=== PATIENT | female | born 1960 | race Caucasian/White ===

== ENCOUNTER → 2017-04-01 | Outpatient (CLI) | payer OTHER ==
--- NOTE | 2017-04-26 00:28 | ECWPNPC ---
PATIENT NAME: UNIQUE ALBA : 1960 GENDER: FEMALE VISIT DATE: 04/01/2017 DISCHARGE DATE: 04/01/17 1649 VISIT LOCKED DATE TIME: PHYSICIAN: ELLA GOLDMAN RESOURCE: ELLA GOLDMAN REASON FOR APPOINTMENT 1. LOW BACK HISTORY OF PRESENT ILLNESS NEW PATIENT CONSULT: WHEN DID YOUR PAIN FIRST START? . BRIEFLY DESCRIBE HOW YOUR PAIN STARTED? . HOW DOES YOUR PAIN CHANGE WITH TIME? . DOES YOUR PAIN AWAKEN YOU FROM SLEEP? . HOW MANY HOURS OF SLEEP DO YOU NORMALLY GET? . ANY DIAGNOSTIC TESTING? . FACILITY WHERE TESTS WERE DONE? ____. PAIN TREATMENT TREATMENT YES CANCER HAVE YOU EVER HAD ANY TYPE OF CANCER?NO NO. PAIN SCREENING: PATIENT HAS A COMPLAINT OF ACUTE OR CHRONIC PAIN :YES FALL RISK SCREENING: SCREENING :NO FALLS IN THE PAST YEAR CASTRO INVENTORY: QUESTIONNAIRE ASSESSEDTBD SCORE VALUE CALCULATED TBD TODAY'S VISIT: NOTES: REFERRED TODAY FOR FURTHER EVAL OF SCIATIC PAIN AND NECK PAIN WITH RADICULOPATHY BY BEL ANDREWS PA-C. IS ALSO BEING FOLLOWED BY NEUROLOGY. IS S/P CERVICAL LAMINECTOMY IN 2008 IN [place]. NECK PAIN IMPROVED AFTER SURGERY. WORST PAIN NOW IS IN LOW BACK. ONSET HAS BEEEN FOR OVER 5 YEARS. . RATES PAIN TODAY 10/10, DESCRIBES PAIN CONSTANT, BURNING, STABBING. PAIN IS CENTER LOW BACK AND RADIATES DOWN BOTH LEGS LEFT > RIGHT. IS FALLING FREQUENTLY.STATES HER LEGS GIVE OUT.REPORTS NUMBNESS AND TINGLING BOTH LOWER EXTREMITIES RIGHT> LEFT. DENIES LOSS OF BOWEL OR BLADDER CONTROL. HAS HAD RECENT PHYSICAL THERAPY FOR BACK - THIS PRODUCED MARKED INCREASE IN PAIN - NOTES SHE HAS PANIC ISSUES AND IT IS VERY HARD FOR HER TO GO OUT OF THE HOUSE. HAS HAD NO OTHER RECENT REATMENT FOR HER BACK.. CURRENT MEDICATIONS TAKING CANE - MISCELLANEOUS DIRECTED _ DAILY ICD10 R26.2 TAKING DICLOFENAC POTASSIUM 50 MG TABLET 1 TABLET ORALLY TWICE A DAY TAKING WELLBUTRIN XL 150 MG TABLET EXTENDED RELEASE 24 HOUR 1 TABLET IN THE MORNING ORALLY ONCE A DAY TAKING ALBUTEROL SULFATE HFA 108 (90 BASE) MCG/ACT AEROSOL SOLUTION 2 PUFFS NEEDED INHALATION EVERY 4 HRS TAKING ADVAIR DISKUS 250-50 MCG/DOSE AEROSOL POWDER BREATH ACTIVATED 1 PUFF INHALATION TWICE A DAY TAKING ONE TOUCH ULTRA SYSTEM KIT _ METER DIRECTED SUBCUTANEOUSLY DIRECTED ICD10 E11.65 TAKING ONE TOUCH ULTRA TEST STRIPS _ STRIPS DIRECTED SUBCUTANEOUSLY FOUR TIMES DAILY ICD10 E11. TAKING ONETOUCH LANCETS _ MISCELLANEOUS DIRECTED SUBCUTANEOUSLY FOUR TIMES DAILY NEEDED E11.65 TAKING PEN NEEDLES 3/16" 31G X 5 MM MISCELLANEOUS DIRECTED SUBCUTANEOUSLY FOUR TIMES DAILY ICD10 E11.65 TAKING FREESTYLE TEST STRIPS _ STRIP DIRECTED IN VITRO FOUR TIMES DAILY ICD10 E11.9 TAKING FREESTYLE FREEDOM _ GLUCOMETER DIRECTED _ FOUR TIMES DAILY E11.9 TAKING AMITRIPTYLINE HCL 50 MG TABLET 1 TABLET ORALLY ONCE A DAY TAKING WRIST BRACE/LEFT MEDIUM - MISCELLANEOUS DIRECTED _ DAILY TAKING WRIST BRACE/RIGHT MEDIUM - MISCELLANEOUS DIRECTED _ DAILY ICD10 G56.03 TAKING LEVEMIR FLEXPEN 100 UNIT/ML SOLUTION PEN-INJECTOR 40 UNITS SUBCUTANEOUS Q PM TAKING NOVOLOG FLEXPEN 100 UNIT/ML SOLUTION PEN-INJECTOR 38 UNITS WITH EACH MEAL SUBCUTANEOUS DIRECTED TAKING VENTOLIN HFA 108 (90 BASE) MCG/ACT AEROSOL SOLUTION 2 PUFFS NEEDED TAKING FLONASE ALLERGY RELIEF 50 MCG/ACT SUSPENSION 1 SPRAY IN EACH NOSTRIL NASALLY BID TAKING ZYRTEC ALLERGY 10 MG TABLET 1 TABLET ORALLY ONCE A DAY TAKING AMLODIPINE 10 MG TABLET ORAL ORALLY ONCE DAILY TAKING GABAPENTIN 600 MG TABLET 1 CAPSULE DAILY ON DAY 1, TWICE A DAY ON DAY 2, THEN 3 TIMES A DAY ORALLY DIRECTED TAKING HYDROXYZINE HCL 25 MG TABLET 1-2 TABLET NEEDED QHS ORALLY DIRECTED TAKING LIPITOR 10 MG TABLET 1 TABLET ORALLY ONCE A DAY TAKING METOPROLOL TARTRATE 25 MG TABLET 1 TABLET WITH FOOD ORALLY TWICE A DAY TAKING CYMBALTA 60 MG CAPSULE DELAYED RELEASE PARTICLES 1 CAPSULE ORALLY ONCE A DAY TAKING TOPIRAMATE 100 MG TABLET 1 TABLET ORALLY BEFORE BEDTIME TAKING SINGULAIR 10 MG TABLET 1 TABLET IN THE EVENING ORALLY ONCE A DAY TAKING MOBIC 15 MG TABLET 1 TABLET ORALLY ONCE A DAY MEDICATION LIST REVIEWED AND RECONCILED WITH THE PATIENT PAST MEDICAL HISTORY DIABETES HYPERTENSION ASTHMA FIBROMYALGIA DEPRESSION INSOMNIA BILATERAL CARPAL SLOAN ALLERGIES PENICILLIN (FOR ALLERGIES USE ONLY): HIVES: ALLERGY DOXYCYCLINE: DIZZINESS: SIDE EFFECTS SURGICAL HISTORY HYSTERECTOMY 2004 CERVICAL 2014 KNEE SURGERY 2015 FAMILY HISTORY FATHER: , DIAGNOSED WITH HYPERTENSION, HEART DISEASE, CANCER MOTHER: ALIVE, DIAGNOSED WITH HYPERTENSION, HEART DISEASE, STROKE SIBLINGS: DIAGNOSED WITH STROKE 1 BROTHER(S) , 7 SISTER(S) . 1 SON(S) , 1 DAUGHTER(S) - HEALTHY. FATHER- PROSTATE CANCER. SOCIAL HISTORY GENERAL: TOBACCO USE ARE YOU A:FORMER SMOKER HOW LONG HAS IT BEEN SINCE YOU LAST SMOKED?> 10 YEARS LUNG CANCER SCREENING SMOKING STATUS:FORMER SMOKER IS THE PATIENT BETWEEN THE AGE OF 57 AND 79?NO BMI CARE GOAL FOLLOW-UP ABOVE NORMAL BMI FOLLOW-UPDIETARY MANAGEMENT EDUCATION, GUIDANCE, AND COUNSELING ALCOHOL SCREENING POINTS0 INTERPRETATIONNEGATIVE RECREATIONAL DRUG USE DRUG USE?NO CAFFEINE CAFFEINE USE?NO OCCUPATION: UNEMPLOYED. [employer] [id number] QUAKER LEARNING BARRIERS / SPECIAL NEEDS CHANGE FROM LAST VISIT?NO PAIN CLINIC PFS, CLERGY, PUBLIC HEALTH REFERRALS PFS REFERRAL NEEDED?NO CLERGY REFERRAL NEEDED?NO PUBLIC HEALTH REFERRAL NEEDED?NO WAS THE PROVIDER NOTIFIED OF ANY PERTINENT INFO?NO PATIENT: ____. ADVANCED DIRECTIVES HEALTH CARE PROXY?NO WOULD YOU LIKE MORE INFORMATION?YES WEARS GLASSES, USES CANE TO WALK. HOSPITALIZATION/MAJOR DIAGNOSTIC PROCEDURE SURGICAL PNEUMONIA 12 YEARS AGO REVIEW OF SYSTEMS CONSTITUTIONAL: ANY CHANGE IN YOUR MEDICAL CONDITION? NO . CHILLS NO . FEVER NO . INFECTION: DO YOU HAVE NEW INFECTIONS? NO . DO YOU HAVE HISTORY OF MRSA? NO . MUSCULOSKELETAL: ANY NEW PATTERNS OF PAIN OR NUMBNESS? NO . SYTEMIC LUPUS NO . GASTROENTEROLOGY: ANY NEW CHANGE IN BOWEL CONTROL? NO . BARRETTS ESOPHAGUS NO . CIRRHOSIS NO . HEPATITIS NO . LIVER FAILURE NO . ACID REFLUX YES . UNEXPLAINED WEIGHT LOSS NO . GENITOURINARY: ANY NEW CHANGE IN BLADDER CONTROL? NO . IS THERE A CHANCE YOU COULD BE ? NO . HEMATOLOGY/LYMPH: DO YOU TAKE ANY BLOOD THINNERS? (FOR EXAMPLE- COUMADIN, PLAVIX, AGGRENOX, PLATEL, PRADAXA, OR XARELTO) NO . WHEN WAS YOUR LAST DOSE? DATE: TIME: . LOW PLATELET COUNT NO . SICKLE CELL DISEASE NO . VON WILLIEBRANDS NO . FACTOR V LEIDEN NO . THALLASEMIA NO . ANEMIA NO . EASY BRUISING NO . NEUROLOGY: HAVE YOU FALLEN IN THE PAST 6 MONTHS? NO . HEAD INJURY NO . DEMENTIA NO . CEREBRAL PALSY NO . MULTIPLE SCLEROSIS NO . BURNING PAIN IN FEET NEUROPATHY IN BOTH LOWER EXTREMITIES. . DIZZINESS NO . HEADACHE MIGRAINES BEING TREATED BY NEUROPATHY . STROKES NO . VERTIGO NO . CARDIOLOGY: DO YOU HAVE A PACEMAKER OR DEFIBRILLATOR? NO . ANGINA YES . HEART ATTACK NO . HEART SURGERY NO . CONGESTIVE HEART FAILURE/FLUID OVERLOAD NO . CHEST PAIN NO . HIGH BLOOD PRESSURE YES . IRREGULAR HEART BEAT YES . RESPIRATORY: SLEEP APNEA THINKS MAY HAVE SLEEP APNEA - SNORE LOUDLY, FAMILY REPORTS SHE SNORE LOUDLY . HAVE YOU BEEN SICK IN THE PAST WEEK? NO . FEVER NO . FLU LIKE SYMPTOMS? NO . CPAP NO . BYPAP NO . ASTHMA YES . EMPHYSEMA NO . CHRONIC LUNG DISEASES NO . SHORTNESS OF BREATH ON EXERTION YES . DO YOU USE ANY TYPE OF TOBACCO (SMOKE, SMOKELESS, CHEW)? NO - QUIT 18 YEARS AGO. . COUGH NO . SNORING YES . INTEGUMENTARY: DO YOU HAVE ANY RASHES OR OPEN SORES? NO . ALLERGIC/IMMUNO: ARE YOU ALLERGIC TO SHELLFISH OR IV DYE? NO . ANY NEW ALLERGIES? NO . PSYCHIATRIC: DO YOU HAVE THOUGHTS OF HURTING YOURSELF OR SOMEONE ELSE? NO . ARE YOU ABUSED, NEGLECTED, OR IN AN UNSAFE ENVIRONMENT? NO . ENDOCRINOLOGY: ARE YOU DIABETIC? YES . THYROID DISORDER NO . OTHER: DO YOU NEED ANY PRESCRIPTIONS? NO . IF YES, PLEASE LIST: ____ . ANY NEW PROBLEMS WITH YOUR MEDICATIONS? NO . WHEN DID YOU LAST EAT? ____ . WHEN DID YOU LAST DRINK? ____ . WHAT DID YOU LAST DRINK? ____ . NAME OF PERSON DRIVING YOU HOME? ____ . DO YOU HAVE ANY OTHER QUESTIONS OR CONCERNS NO . REVIEWED BY: PROVIDER: ELLA LAW . VITAL SIGNS WT 202.2 LBS, HT 62", BMI 36.98 INDEX, BP 165/100 MM HG, HR 117 /MIN, RR 16 /MIN, TEMP 97.8 F, OXYGEN SAT % 98%, NA INITIALS TL 1534, REVIEWED BY: KATE BP, RN N.L. AWARE- TL. EXAMINATION GENERAL EXAMINATION: PSYCHHAVING SOME DIFFICULTY FILLING OUT REQUIRED PAPERWORK, WITH UNDERSTANDING OF DIRECTIONS. , FAIREYE CONTACT, , ANXIOUS, ALERT , ORIENTED X 3 . HEENT:NORMOCEPHALIC, NO LYMPHADENOPATHY, NO THYROMEGLY. LUNGS:CLEAR TO AUSCULTATION BILATERALLY, NO WHEEZES, RALES OR RHONCHI. HEART:HEART RATE REGULAR, NORMAL S1S2, NO MURMURS, CLICK OR RUBS. MUSCULOSKELETAL:MUSCLE STRENGTH TESTING 5/5 BILATERAL UPPER AND LOWER EXTREMITIES. POINT TENDERNESS OVER LUMBAR SPINOUS PROCESSES AND BILATERALLY AT THE SACRAL ILIAC JOINTS. CAN FLEX TO 45 DEGREES, EXTEND TO 10 DEGREES, AND ROTATE SLOWLY SIDE TO SIDE. SLR POSITIVE AT 30 DEGREES ON RIGHT. PAIN ELICITED WITH HIP COMPRESSIONS R>L AND WITH PATRICKS TESTING. POSTURE UPRIGHT, GAIT SLOW, NONANTALGIC. NEUROLOGIC EXAM:CN'S II-XII GROSSLY INTACT. NO SENSORY DEFICEIT ELICITED. DTR'S 2+ BUE, 3+ BILATERAL LOWER EXTREMITIES. PLANTAR RESPONSE IS FLXOR. NO CLONUS. ASSESSMENTS LUMBAGO WITH SCIATICA, LEFT SIDE - M54.42 (PRIMARY) LUMBAGO WITH SCIATICA, RIGHT SIDE - M54.41 BILATERAL SACROILIITIS - M46.1 TREATMENT LUMBAGO WITH SCIATICA, LEFT SIDE START BACLOFEN TABLET, 10 MG, 1 TABLET WITH FOOD OR MILK, ORALLY, THREE TIMES A DAY, 30 DAY(S), 90, REFILLS 1 START VALIUM TABLET, 10 MG, 1 TABLET NEEDED, ORALLY, TAKE 1 TAB 1 HOUR PRIOR TO TEST, AND 1 TAB ON ARRIVAL MDD=2, 1 DOSE(S), 2, REFILLS 0 [facility] MRI SPINE, [facility].S[facility] WITHOUT [id number],SUSAN M 04/01/2017 4:27:48 PM > LUMBAR RADICULOPATHY CLINICAL NOTES: HAS HAD PREVIOUS PHYSICA THERAPY WITHOUT RELIEF, HAS BEEN ON NSAIDS SUPERVISED BY HER PCP WITHOUT EFFECT AND HAS FAILED PREVIOUS MUSCLE RELAXERS. WE ARE REQUESTING MRI OF LUMBAR SPINE SO WE CAN MOVE FORWARD WITH FURTHER TREATMENT. PREVENTIVE MEDICINE GAVE INFO ON BACLOFEN. PROCEDURE CODES FA211 ESTABILISHED PATIENT [facility] CHARGE DISPOSITION & COMMUNICATION FOLLOW UP 1 MONTH (REASON: NEED AUTH FOR MRI LUMBAR SPINE) ELECTRONICALLY SIGNED BY ZECHARIAH ARAGON ON 04/25/2017 AT 08:43 AM EDT DISCLAIMER : THIS IS A VISIT SUMMARY EXTRACTED FROM THE [employer] CHART. IT IS NOT A COPY OF THE [employer] PROGRESS NOTE. [email or web address]
== END | disposition home or self-care (01) ==
LOC: M PAIN 15:20
PROVIDERS: ATTEND Nurse Practitioner Family
DX: G89.29 Other chronic pain (principal); M54.42 Lumbago with sciatica, left side; M54.41 Lumbago with sciatica, right side; M46.1 Sacroiliitis, not elsewhere classified; E11.9 Type 2 diabetes mellitus without complications; I10 Essential (primary) hypertension; J45.909 Unspecified asthma, uncomplicated; M79.7 Fibromyalgia; F33.9 Major depressive disorder, recurrent, unspecified; G47.00 Insomnia, unspecified; G56.03 Carpal tunnel syndrome, bilateral upper limbs; Z82.49 Family history of ischemic heart disease and other diseases of the circulatory system; Z79.899 Other long term (current) drug therapy; Z79.51 Long term (current) use of inhaled steroids; Z79.4 Long term (current) use of insulin; Z88.0 Allergy status to penicillin; Z88.1 Allergy status to other antibiotic agents; Z87.891 Personal history of nicotine dependence

== ENCOUNTER → 2017-04-18 | Outpatient (REF) | payer OTHER ==
[2017-04-18 17:59] LABS: MEAN CORPUSCULAR HEMOGLOBIN 29.8 pg (27.0-33.0); MEAN CORPUSCULAR VOLUME 90.4 fl (80.0-96.0); RED CELL DISTRIBUTION WIDTH 13.4 % (11.5-14.5); WHITE BLOOD COUNT 9.6 K/mm3 (4.0-10.0)
[2017-04-18 18:30] LABS: ALBUMIN 3.2 GM/DL (3.2-5.2); ALBUMIN/GLOBULIN RATIO 0.89 (1.00-1.93); ALKALINE PHOSPHATASE 196 U/L (45-117); ALT/SGPT 22 U/L (12-78); ANION GAP 6 MEQ/L (8-16); AST/SGOT 14 U/L (15-37); BILIRUBIN,TOTAL 0.7 MG/DL (0.2-1.0); BLOOD UREA NITROGEN 12 MG/DL (7-18); CARBON DIOXIDE LEVEL 30 MEQ/L (21-32); CHLORIDE LEVEL 106 MEQ/L (98-107); CHOLESTEROL LEVEL 168 MG/DL (<200); CREATININE FOR GFR 0.77 MG/DL (0.55-1.02); GLOMERULAR FILTRATION RATE > 60.0 (>51); GLUCOSE, FASTING 288 MG/DL (70-105); POTASSIUM SERUM 4.1 MEQ/L (3.5-5.1); SODIUM LEVEL 142 MEQ/L (136-145); TOTAL PROTEIN 6.8 GM/DL (6.4-8.2); TRIGLYCERIDES LEVEL 230 MG/DL (<150)
== END ==
LOC: M SFHCLERA 13:43
PROVIDERS: ATTEND Physician Assistant
DX: I10 Essential (primary) hypertension (principal); E78.2 Mixed hyperlipidemia; E11.65 Type 2 diabetes mellitus with hyperglycemia

== ENCOUNTER 2017-06-27 09:33 | Outpatient (RCR) | payer OTHER | END 2017-06-30 | disposition home or self-care (01) | LOC: M PT 09:33 | PROVIDERS: ATTEND Physician Assistant | DX: Z51.89 Encounter for other specified aftercare (principal); R42 Dizziness and giddiness ==

== ENCOUNTER → 2017-07-21 | Outpatient (CLI) | payer OTHER ==
--- NOTE | 2017-07-25 23:53 | ECWPNPC ---
PATIENT NAME: UNIQUE ALBA : 1960 GENDER: FEMALE VISIT DATE: 07/21/2017 DISCHARGE DATE: 07/21/17 1441 VISIT LOCKED DATE TIME: PHYSICIAN: ELLA GOLDMAN RESOURCE: ELLA GOLDMAN REASON FOR APPOINTMENT 1. REVIEW MRI HISTORY OF PRESENT ILLNESS HISTORY OF PRESENT ILLNESS: PAIN THE PATIENT DESCRIBES THE PAIN... FALL RISK SCREENING: SCREENING :NO FALLS IN THE PAST YEAR TODAY'S VISIT: NOTES: RATES PAIN TODAY 10/10. DESCRIBES PAIN CONSTANT, ACHING, SHARP AND STABBING. PAIN IS CENTERED ACROSS THE LOW BACK WITH RADIATION TO BOTH LEGS TO LEVEL OF FOOT. REPORTS LEFT LEG IS HOT AND COLLASPS. HAS HAD MULTIPLE FALLS. . CURRENT MEDICATIONS TAKING CANE - MISCELLANEOUS DIRECTED _ DAILY ICD10 R26.2 TAKING DICLOFENAC POTASSIUM 50 MG TABLET 1 TABLET ORALLY TWICE A DAY TAKING WELLBUTRIN XL 150 MG TABLET EXTENDED RELEASE 24 HOUR 1 TABLET IN THE MORNING ORALLY ONCE A DAY TAKING ALBUTEROL SULFATE HFA 108 (90 BASE) MCG/ACT AEROSOL SOLUTION 2 PUFFS NEEDED INHALATION EVERY 4 HRS TAKING ONE TOUCH ULTRA SYSTEM KIT _ METER DIRECTED SUBCUTANEOUSLY DIRECTED ICD10 E11.65 TAKING ONE TOUCH ULTRA TEST STRIPS _ STRIPS DIRECTED SUBCUTANEOUSLY FOUR TIMES DAILY ICD10 E11.65 TAKING ONETOUCH LANCETS _ MISCELLANEOUS DIRECTED SUBCUTANEOUSLY FOUR TIMES DAILY NEEDED E11.65 TAKING PEN NEEDLES 316" 31G X 5 MM MISCELLANEOUS DIRECTED SUBCUTANEOUSLY FOUR TIMES DAILY ICD10 E11.65 TAKING AMITRIPTYLINE HCL 50 MG TABLET 1 TABLET ORALLY ONCE A DAY TAKING WRIST BRACE/LEFT MEDIUM - MISCELLANEOUS DIRECTED _ DAILY TAKING WRIST BRACE/RIGHT MEDIUM - MISCELLANEOUS DIRECTED _ DAILY ICD10 G56.03 TAKING HYDROXYZINE HCL 25 MG TABLET 1-2 TABLET NEEDED QHS ORALLY DIRECTED TAKING TOPIRAMATE 100 MG TABLET 1 TABLET ORALLY BEFORE BEDTIME TAKING SINGULAIR 10 MG TABLET 1 TABLET IN THE EVENING ORALLY ONCE A DAY TAKING BACLOFEN 10 MG TABLET 1 TABLET WITH FOOD OR MILK ORALLY THREE TIMES A DAY TAKING VALIUM 10 MG TABLET 1 TABLET NEEDED ORALLY TAKE 1 TAB 1 HOUR PRIOR TO TEST, AND 1 TAB ON ARRIVAL MDD=2 TAKING TOPIRAMATE 100 MG TABLET TAKE ONE TABLET BY MOUTH AT BEDTIME ORAL TAKING KETOCONAZOLE 2 % CREAM 1 APPLICATION TO CORNERS OF MOUTH EXTERNALLY ONCE A DAY TAKING LIPITOR 10 MG TABLET 1 TABLET ORALLY ONCE A DAY TAKING ADVAIR DISKUS 250-50 MCG/DOSE AEROSOL POWDER BREATH ACTIVATED 1 PUFF INHALATION TWICE A DAY TAKING AMLODIPINE 10 MG TABLET ORAL ORALLY ONCE DAILY TAKING ZYRTEC ALLERGY 10 MG TABLET 1 TABLET ORALLY ONCE A DAY TAKING MECLIZINE HCL 25 MG TABLET CHEWABLE 1 TABLET NEEDED ORALLY Q 6 HOURS PRN TAKING INVOKANA 100 MG TABLET 1 TABLET ORALLY ONCE A DAY TAKING NOVOLOG FLEXPEN 100 UNIT/ML SOLUTION PEN-INJECTOR 38 UNITS WITH EACH MEAL SUBCUTANEOUS DIRECTED TAKING FREESTYLE FREEDOM _ GLUCOMETER DIRECTED _ FOUR TIMES DAILY E11.9 TAKING FREESTYLE LITE TEST - STRIP DIRECTED IN VITRO FOUR TIMES DAILY NEEDED ICD10 E11.65 TAKING LEVEMIR FLEXPEN 100 UNIT/ML SOLUTION PEN-INJECTOR 40 UNITS SUBCUTANEOUS Q PM TAKING METOPROLOL TARTRATE 25 MG TABLET 1 TABLET WITH FOOD ORALLY TWICE A DAY TAKING MOBIC 15 MG TABLET 1 TABLET ORALLY ONCE A DAY TAKING VENTOLIN HFA 108 (90 BASE) MCG/ACT AEROSOL SOLUTION INHALE TWO PUFFS BY MOUTH EVERY 4 HOURS NEEDED TAKING GABAPENTIN 600 MG TABLET ORALLY THREE TIMES A DAY TAKING FLONASE ALLERGY RELIEF 50 MCG/ACT SUSPENSION 1 SPRAY IN EACH NOSTRIL NASALLY BID TAKING CYMBALTA 60 MG CAPSULE DELAYED RELEASE PARTICLES 1 CAPSULE ORALLY ONCE A DAY TAKING PANTOPRAZOLE SODIUM 40 MG TABLET DELAYED RELEASE 1 TABLET ORALLY ONCE A DAY DISCONTINUED DULOXETINE HCL 60 MG CAPSULE DELAYED RELEASE PARTICLES 1 CAPSULE ORALLY ONCE A DAY MEDICATION LIST REVIEWED AND RECONCILED WITH THE PATIENT PAST MEDICAL HISTORY DIABETES HYPERTENSION ASTHMA FIBROMYALGIA DEPRESSION INSOMNIA BILATERAL CARPAL SLOAN ALLERGIES PENICILLIN (FOR ALLERGIES USE ONLY): HIVES: ALLERGY DOXYCYCLINE: DIZZINESS: SIDE EFFECTS REVIEW OF SYSTEMS REVIEWED BY: PROVIDER: ELLA LWA . CONSTITUTIONAL: ANY CHANGE IN YOUR MEDICAL CONDITION? NO . CHILLS NO . FEVER NO . INFECTION: DO YOU HAVE NEW INFECTIONS? NO . DO YOU HAVE HISTORY OF MRSA? NO . MUSCULOSKELETAL: ANY NEW PATTERNS OF PAIN OR NUMBNESS? YES, LEFT LEG IS HOT AND LEFT BUTTOCK GETS HOT AND NUMB AND THEN SHE FALLS ALOT . GASTROENTEROLOGY: ANY NEW CHANGE IN BOWEL CONTROL? NO . GENITOURINARY: ANY NEW CHANGE IN BLADDER CONTROL? NO . IS THERE A CHANCE YOU COULD BE ? NO . HEMATOLOGY/LYMPH: DO YOU TAKE ANY BLOOD THINNERS? (FOR EXAMPLE- COUMADIN, PLAVIX, AGGRENOX, PLATEL, PRADAXA, OR XARELTO) NO . WHEN WAS YOUR LAST DOSE? DATE: TIME: . NEUROLOGY: HAVE YOU FALLEN IN THE PAST 6 MONTHS? YES, JUST LAST WEEK / FALLS ALOT FROM LEFT LEG BRUISE TO LEFT LEG BELOW KNEE AND KNEE IS SWOLLEN TO . ANY NEW EXTREMITY NUMBNESS OR WEAKNESS? NO . CARDIOLOGY: DO YOU HAVE A PACEMAKER OR DEFIBRILLATOR? NO . RESPIRATORY: HAVE YOU BEEN SICK IN THE PAST WEEK? NO . FEVER NO . FLU LIKE SYMPTOMS? NO . COUGH NO . INTEGUMENTARY: DO YOU HAVE ANY RASHES OR OPEN SORES? NO . ALLERGIC/IMMUNO: ARE YOU ALLERGIC TO SHELLFISH OR IV DYE? NO . ANY NEW ALLERGIES? NO . PSYCHIATRIC: DO YOU HAVE THOUGHTS OF HURTING YOURSELF OR SOMEONE ELSE? NO . ARE YOU ABUSED, NEGLECTED, OR IN AN UNSAFE ENVIRONMENT? NO . ENDOCRINOLOGY: ARE YOU DIABETIC? YES . OTHER: DO YOU NEED ANY PRESCRIPTIONS? NO . IF YES, PLEASE LIST: ____ . ANY NEW PROBLEMS WITH YOUR MEDICATIONS? NO . WHEN DID YOU LAST EAT? ____ . WHEN DID YOU LAST DRINK? ____ . WHAT DID YOU LAST DRINK? ____ . NAME OF PERSON DRIVING YOU HOME? ____ . DO YOU HAVE ANY OTHER QUESTIONS OR CONCERNS NO . VITAL SIGNS WT 208 LBS, HT 62", BMI 38.04 INDEX, BP 159/91 MM HG, HR 93 /MIN, RR 16 /MIN, TEMP 98.1 F, OXYGEN SAT % 97. EXAMINATION GENERAL EXAMINATION: PSYCH ANXIOUS, ALERT , ORIENTED X 3 . HEENT:NORMOCEPHALIC, NO LYMPHADENOPATHY, NO THYROMEGLY. LUNGS:CLEAR TO AUSCULTATION BILATERALLY, NO WHEEZES, RALES OR RHONCHI. HEART:HEART RATE REGULAR, NORMAL S1S2, NO MURMURS, CLICK OR RUBS. MUSCULOSKELETAL:MUSCLE STRENGTH TESTING 5/5 BILATERAL UPPER AND LOWER EXTREMITIES. POINT TENDERNESS OVER LUMBAR SPINOUS PROCESSES AND BILATERALLY AT THE SACRAL ILIAC JOINTS. . PAIN ELICITED WITH HIP COMPRESSIONS R>L AND WITH PATRICKS TESTING. POSTURE UPRIGHT, GAIT SLOW, NONANTALGIC. NEUROLOGIC EXAM:CN'S II-XII GROSSLY INTACT. NO SENSORY DEFICEIT ELICITED. DTR'S 2+ BUE, 3+ BILATERAL LOWER EXTREMITIES.. DIAGNOSTIC TESTS REVIEWEDREVIEWED MRI OF LUMBAR SPINE COMPLETED ON 06/14/17. DEMONSTRATES MILD DEVELOPMENTAL STENOSISMOF THE SPINAL CANAL AT L3-5. THERE IS MILD DISC BULGE WITH A SUPERIMPOSED DISC PROTRUSION EXTENDING INTO THE LATERAL RECESS. THE MYELOGRAPHIC IMAGING SUGGESTS EXTRINSIC NERVE ROOT COMPRESSION ON THE LEFT. THERE IS MILD DEGENERATIVE DISC DISEASE AT L4-5 AND MODERATE DEGENERATIVE DISC DISEASE WITH A SMALL TO MODERATE SIZED CENTRAL DISC EXTRUSION. THERE IS OSTEOARTHRITIC FACET JOINT CHANGES AT L4-5 AND L5-S1. ASSESSMENTS LUMBAR DISC DISPLACEMENT WITHOUT MYELOPATHY - M51.26 (PRIMARY) LUMBAR RADICULOPATHY - M54.16 TREATMENT LUMBAR DISC DISPLACEMENT WITHOUT MYELOPATHY START PREDNISONE TABLET, 20 MG, 1 TABLET, ORALLY, TAKE 1 TAB TWICE A DAYX 3 DAYS AND THEN 1/2 TAB TWICE A DAY X 3 DAYS, 30 DAY(S), 9, REFILLS 0 NOTES: INTRALAMINAR LUMBAR EPIDURAL HOLD INSULIN AND DIABETES MEDS MORNING OF INJECTION,WHAT IS LUMBAR EPIDURAL INJECTION? MATERIAL WAS PRINTED,LUMBAR EPIDURAL INJECTION: YOUR PROCEDURE MATERIAL WAS PRINTED. CLINICAL NOTES: OPTION FOR EPIDURAL INJECTIONS WERE DISCUSSED WITH THE PATIENT. FDA CONCERNS AND WARNING WERE REVIEWED INCLUDING THE RISK OF BLEEDING, RISK OF INFECTION, RISK OF INCREASED PAIN OR NEURALGIA, AND RISK OF PARALYSIS. PATIENT'S QUESTIONS WERE ANSWERED AND HE/SHE WISHES TO MOVE FORWARD WITH EPIDURAL INJECTION. REFERRAL TO:NEUROSURGERY REASON:LUMBAR DISC DISPLACEMENT L5, LUMBAR RADICULOPATHY REFERRAL TO:[facility] REASON:L5-S1 LUMBAR DISC DISPLACENT WITH RADICULOPATHY PREVENTIVE MEDICINE GAVE INFO ON LESI AND PRE PROCEDURE CARE / PT STATES UNDERSTANDING. PROCEDURE CODES FA211 ESTABILISHED PATIENT [facility] CHARGE DISPOSITION & COMMUNICATION FOLLOW UP AFTER INJECTION (REASON: CHECK AUTH INTRALAMINAR LUMBAR EPIDURAL ) ELECTRONICALLY SIGNED BY ZECHARIAH ARAGON ON 07/25/2017 AT 07:23 PM EDT DISCLAIMER : THIS IS A VISIT SUMMARY EXTRACTED FROM THE [employer] CHART. IT IS NOT A COPY OF THE [employer] PROGRESS NOTE. ZAMZAM
== END | disposition home or self-care (01) ==
LOC: M PAIN 13:15
PROVIDERS: ATTEND Nurse Practitioner Family
DX: G89.29 Other chronic pain (principal); M51.26 Other intervertebral disc displacement, lumbar region; M54.16 Radiculopathy, lumbar region; E11.9 Type 2 diabetes mellitus without complications; I10 Essential (primary) hypertension; J45.909 Unspecified asthma, uncomplicated; M79.7 Fibromyalgia; F33.9 Major depressive disorder, recurrent, unspecified; G47.00 Insomnia, unspecified; Z79.899 Other long term (current) drug therapy; Z79.51 Long term (current) use of inhaled steroids; Z79.4 Long term (current) use of insulin; Z88.0 Allergy status to penicillin; Z88.1 Allergy status to other antibiotic agents

== ENCOUNTER → 2017-08-18 | Outpatient (CLI) | payer OTHER ==
[~2017-08-18] MED LIST: ISOVUE-M 300 61% 15ML VIAL (Q9967) As Ordered ONE; LIDOCAINE 1% SDV INJ 30 ML VIAL As Ordered ONE; diazePAM 5 MG TAB As Ordered ONE; methylPREDNISolone SUSP 40 MG/ML (DEPO-medrol) VIAL (J1030) As Ordered ONE; oxyCODONE 5MG TAB As Ordered ONE
--- NOTE | 2017-08-18 11:13 | REP ---
Partial lumbar spine series: Three views . History: Injection procedure for pain. 42 seconds of fluoroscopy time is reported. Findings: A sequence of three fluoroscopically obtained last image hold procedural spot radiographs of the lumbar spine document needle position and contrast injection associated with injection procedure. Signed by Sunday Llanos MD 08/18/2017 11:05 A
--- NOTE | 2017-08-18 23:45 | ECWPNPC ---
PATIENT NAME: UNIQUE ALBA : 1960 GENDER: FEMALE VISIT DATE: 08/18/2017 DISCHARGE DATE: 08/18/17 0000 VISIT LOCKED DATE TIME: PHYSICIAN: EDIL TAYLOR RESOURCE: EDIL TAYLOR REASON FOR APPOINTMENT 1. INTRALAMINAR LE HISTORY OF PRESENT ILLNESS HISTORY OF PRESENT ILLNESS: PAIN THE PATIENT DESCRIBES THE PAIN... FALL RISK SCREENING: SCREENING :NO FALLS IN THE PAST YEAR CURRENT MEDICATIONS TAKING CANE - MISCELLANEOUS DIRECTED _ DAILY ICD10 R26.2 TAKING DICLOFENAC POTASSIUM 50 MG TABLET 1 TABLET ORALLY TWICE A DAY, NOTES: 08/17/17 08 TAKING WELLBUTRIN XL 150 MG TABLET EXTENDED RELEASE 24 HOUR 1 TABLET IN THE MORNING ORALLY ONCE A DAY, NOTES: 08/17/17 08 TAKING ALBUTEROL SULFATE HFA 108 (90 BASE) MCG/ACT AEROSOL SOLUTION 2 PUFFS NEEDED INHALATION EVERY 4 HRS, NOTES: 08/17/17799 TAKING ONE TOUCH ULTRA SYSTEM KIT _ METER DIRECTED SUBCUTANEOUSLY DIRECTED ICD10 E11.65 TAKING ONE TOUCH ULTRA TEST STRIPS _ STRIPS DIRECTED SUBCUTANEOUSLY FOUR TIMES DAILY ICD10 E11.65 TAKING ONETOUCH LANCETS _ MISCELLANEOUS DIRECTED SUBCUTANEOUSLY FOUR TIMES DAILY NEEDED E11.65 TAKING PEN NEEDLES 3" 31G X 5 MM MISCELLANEOUS DIRECTED SUBCUTANEOUSLY FOUR TIMES DAILY ICD10 E11.65 TAKING AMITRIPTYLINE HCL 50 MG TABLET 1 TABLET ORALLY ONCE A DAY, NOTES: 08/17/172199 TAKING WRIST BRACE/LEFT MEDIUM - MISCELLANEOUS DIRECTED _ DAILY TAKING WRIST BRACE/RIGHT MEDIUM - MISCELLANEOUS DIRECTED _ DAILY ICD10 G56.03 TAKING HYDROXYZINE HCL 25 MG TABLET 1-2 TABLET NEEDED QHS ORALLY DIRECTED, NOTES: 08/17/172199 TAKING TOPIRAMATE 100 MG TABLET 1 TABLET ORALLY BEFORE BEDTIME, NOTES: 08/17/172199 TAKING BACLOFEN 10 MG TABLET 1 TABLET WITH FOOD OR MILK ORALLY THREE TIMES A DAY, NOTES: 08/17/172199 TAKING VALIUM 10 MG TABLET 1 TABLET NEEDED ORALLY TAKE 1 TAB 1 HOUR PRIOR TO TEST, AND 1 TAB ON ARRIVAL MDD=2, NOTES: NONE LATELY TAKING KETOCONAZOLE 2 % CREAM 1 APPLICATION TO CORNERS OF MOUTH EXTERNALLY ONCE A DAY, NOTES: 08/16/17 TAKING ADVAIR DISKUS 250-50 MCG/DOSE AEROSOL POWDER BREATH ACTIVATED 1 PUFF INHALATION TWICE A DAY, NOTES: 08/17/17799 TAKING MECLIZINE HCL 25 MG TABLET CHEWABLE 1 TABLET NEEDED ORALLY Q 6 HOURS PRN, NOTES: 08/17/17799 TAKING INVOKANA 100 MG TABLET 1 TABLET ORALLY ONCE A DAY, NOTES: 08/17/17799 TAKING NOVOLOG FLEXPEN 100 UNIT/ML SOLUTION PEN-INJECTOR 38 UNITS WITH EACH MEAL SUBCUTANEOUS DIRECTED, NOTES: 08/17/17799 TAKING FREESTYLE FREEDOM _ GLUCOMETER DIRECTED _ FOUR TIMES DAILY E11.9 TAKING FREESTYLE LITE TEST - STRIP DIRECTED IN VITRO FOUR TIMES DAILY NEEDED ICD10 E11.65 TAKING LEVEMIR FLEXPEN 100 UNIT/ML SOLUTION PEN-INJECTOR 40 UNITS SUBCUTANEOUS Q PM, NOTES: 08/17/171999 TAKING METOPROLOL TARTRATE 25 MG TABLET 1 TABLET WITH FOOD ORALLY TWICE A DAY, NOTES: 08/17/17799 TAKING GABAPENTIN 600 MG TABLET ORALLY THREE TIMES A DAY, NOTES: 08/17/17799 TAKING FLONASE ALLERGY RELIEF 50 MCG/ACT SUSPENSION 1 SPRAY IN EACH NOSTRIL NASALLY BID, NOTES: 08/17/17799 TAKING CYMBALTA 60 MG CAPSULE DELAYED RELEASE PARTICLES 1 CAPSULE ORALLY ONCE A DAY, NOTES: 08/17/17799 TAKING PANTOPRAZOLE SODIUM 40 MG TABLET DELAYED RELEASE 1 TABLET ORALLY ONCE A DAY, NOTES: 08/17/17799 TAKING PREDNISONE 20 MG TABLET 1 TABLET ORALLY TAKE 1 TAB TWICE A DAYX 3 DAYS AND THEN 1/2 TAB TWICE A DAY X 3 DAYS, NOTES: 07/2017 TAKING PREDNISONE 20 MG TABLET 1 TABLET ORALLY TAKE 1 TAB TWICE A DAY X 3 DAYS, THEN 1/2 TAB TWICE A DAY X 3 DAYS, NOTES: 07/2017 TAKING SINGULAIR 10 MG TABLET 1 TABLET IN THE EVENING ORALLY ONCE A DAY, NOTES: 08/17/17799 TAKING LIPITOR 10 MG TABLET 1 TABLET ORALLY ONCE A DAY, NOTES: 08/17/17799 TAKING AMLODIPINE 10 MG TABLET ORAL ORALLY ONCE DAILY, NOTES: 08/17/17799 TAKING ZYRTEC ALLERGY 10 MG TABLET 1 TABLET ORALLY ONCE A DAY, NOTES: 08/17/17799 TAKING MOBIC 15 MG TABLET 1 TABLET ORALLY ONCE A DAY, NOTES: 08/17/17799 TAKING VENTOLIN HFA 108 (90 BASE) MCG/ACT AEROSOL SOLUTION INHALE TWO PUFFS BY MOUTH EVERY 4 HOURS NEEDED , NOTES: 08/17/17 0800 NOT-TAKING TOPIRAMATE 100 MG TABLET TAKE ONE TABLET BY MOUTH AT BEDTIME ORAL MEDICATION LIST REVIEWED AND RECONCILED WITH THE PATIENT PAST MEDICAL HISTORY DIABETES HYPERTENSION ASTHMA FIBROMYALGIA DEPRESSION INSOMNIA BILATERAL CARPAL SLOAN ALLERGIES PENICILLIN (FOR ALLERGIES USE ONLY): HIVES: ALLERGY DOXYCYCLINE: DIZZINESS: SIDE EFFECTS SURGICAL HISTORY HYSTERECTOMY 2004 CERVICAL 2014 KNEE SURGERY 2015 SOCIAL HISTORY GENERAL: TOBACCO USE ARE YOU A:FORMER SMOKER HOW LONG HAS IT BEEN SINCE YOU LAST SMOKED?> 10 YEARS LUNG CANCER SCREENING SMOKING STATUS:FORMER SMOKER IS THE PATIENT BETWEEN THE AGE OF 57 AND 79?NO BMI CARE GOAL FOLLOW-UP ABOVE NORMAL BMI FOLLOW-UPDIETARY MANAGEMENT EDUCATION, GUIDANCE, AND COUNSELING ALCOHOL SCREENING DID YOU HAVE A DRINK CONTAINING ALCOHOL IN THE PAST YEAR?NO POINTS0 INTERPRETATIONNEGATIVE RECREATIONAL DRUG USE DRUG USE?NO CAFFEINE CAFFEINE USE?NO OCCUPATION: UNEMPLOYED. [employer] [id number] LEARNING BARRIERS / SPECIAL NEEDS CHANGE FROM LAST VISIT?NO PAIN CLINIC PFS, CLERGY, PUBLIC HEALTH REFERRALS PFS REFERRAL NEEDED?NO CLERGY REFERRAL NEEDED?NO PUBLIC HEALTH REFERRAL NEEDED?NO WAS THE PROVIDER NOTIFIED OF ANY PERTINENT INFO?NO HAS THE PATIENT BEEN EDUCATED REGARDING HIS/HER PLAN OF CARE?YES HAS THE PATIENT BEEN EDUCATED REGARDING PAIN, THE RISK FOR PAIN, THE IMPORTANCE OF EFFECTIVE PAIN MANAGEMENT, AND THE PAIN ASSESSMENT PROCESS?YES PATIENT: ____. ADVANCE DIRECTIVES HEALTH CARE PROXY?NO WOULD YOU LIKE MORE INFORMATION?YES WEARS GLASSES, USES CANE TO WALK. HOSPITALIZATION/MAJOR DIAGNOSTIC PROCEDURE SURGICAL PNEUMONIA 12 YEARS AGO REVIEW OF SYSTEMS REVIEWED BY: PROVIDER: . CONSTITUTIONAL: ANY CHANGE IN YOUR MEDICAL CONDITION? NO . CHILLS NO . FEVER NO . INFECTION: DO YOU HAVE NEW INFECTIONS? NO . DO YOU HAVE HISTORY OF MRSA? NO . MUSCULOSKELETAL: ANY NEW PATTERNS OF PAIN OR NUMBNESS? NO . GASTROENTEROLOGY: ANY NEW CHANGE IN BOWEL CONTROL? NO . GENITOURINARY: ANY NEW CHANGE IN BLADDER CONTROL? NO . IS THERE A CHANCE YOU COULD BE ? NO . HEMATOLOGY/LYMPH: DO YOU TAKE ANY BLOOD THINNERS? (FOR EXAMPLE- COUMADIN, PLAVIX, AGGRENOX, PLATEL, PRADAXA, OR XARELTO) NO . WHEN WAS YOUR LAST DOSE? DATE: TIME: . NEUROLOGY: HAVE YOU FALLEN IN THE PAST 6 MONTHS? YES, PT STATES SHE FELL FOR LOSS OF BALANCE INJURING LEFT KNEE AND LEFT ARM, PT DENIES SEEKING MEDICAL TX FOR INJURIES . ANY NEW EXTREMITY NUMBNESS OR WEAKNESS? NO . CARDIOLOGY: DO YOU HAVE A PACEMAKER OR DEFIBRILLATOR? NO . RESPIRATORY: HAVE YOU BEEN SICK IN THE PAST WEEK? NO . FEVER NO . FLU LIKE SYMPTOMS? NO . COUGH NO . INTEGUMENTARY: DO YOU HAVE ANY RASHES OR OPEN SORES? NO . ALLERGIC/IMMUNO: ARE YOU ALLERGIC TO SHELLFISH OR IV DYE? NO . ANY NEW ALLERGIES? NO . PSYCHIATRIC: DO YOU HAVE THOUGHTS OF HURTING YOURSELF OR SOMEONE ELSE? NO . ARE YOU ABUSED, NEGLECTED, OR IN AN UNSAFE ENVIRONMENT? NO . ENDOCRINOLOGY: ARE YOU DIABETIC? YES . OTHER: DO YOU NEED ANY PRESCRIPTIONS? NO . IF YES, PLEASE LIST: ____ . ANY NEW PROBLEMS WITH YOUR MEDICATIONS? NO . WHEN DID YOU LAST EAT? 08/17/17 1700 . WHEN DID YOU LAST DRINK? 08/18/17 0600 . WHAT DID YOU LAST DRINK? WATER . NAME OF PERSON DRIVING YOU HOME? LUBA LEIGH-DAUGHTER . DO YOU HAVE ANY OTHER QUESTIONS OR CONCERNS NO . VITAL SIGNS WT 200 LBS, HT 62", BMI 36.58 INDEX, BP 139/81 MM HG, HR 105 /MIN, RR 16 /MIN, TEMP 98.0 F, OXYGEN SAT % 95, BLOOD GLUCOSE LEVEL 200, REVIEWED BY: EM. VALDERRAMA INTERVERTEBRAL DISC DISORDER WITH RADICULOPATHY OF LUMBOSACRAL REGION - M51.17 (PRIMARY) PROCEDURES PRE PROCEDURE DIAGNOSIS LUMBOSACRAL DISC DISORDER WITH RADICULOPATHY POST PROCEDURE DIAGNOSIS LUMBOSACRAL DISC DISORDER WITH RADICULOPATHY PROCEDURE LUMBAR EPIDURAL STEROID INJECTION UNDER FLUOROSCOPIC GUIDANCE SURGEON DR. EDIL TAYLOR LIP OF SHANK CUTTER NONE ANESTHESIA LOCAL PRE PROCEDURE NOTE THE PATIENT HAS A HISTORY OF CHRONIC LOW BACK PAIN. I EVALUATE THE PATIENT AND REVIEWED THE CHART. I WENT OVER THE RISKS, ALTERNATIVES, AND BENEFITS ASSOCIATED WITH THIS PROCEDURE. THE PATIENT WOULD LIKE TO PROCEED AND GIVE CONSENT TO PERFORMED THE PROCEDURE. THE PATIENT DENIES UNEXPLAINABLE WEIGHT LOSS, FEVER, CHILLS, OR NEW CHANGES IN URINARY OR BOWEL CONTROL. DESCRIPTION OF PROCEDURE THE PATIENT WAS BROUGHT TO THE PROCEDURE ROOM AND PLACED IN THE PRONE POSITION. THE LUMBOSACRAL AREA WAS CLEANED WITH BETADINE SOLUTION AND DRAPED ASEPTICALLY. THE PROCEDURE WAS DONE UNDER STERILE CONDITIONS. I CHECKED LATERALITY AND THE LEVEL WHERE THE PROCEDURE WAS GOING TO BE PERFORMED WITH THE PATIENT AND THE SUPPORTING STAFF AT THE MOMENT OF THE TIME OUT IN THE PROCEDURE ROOM. UNDER FLUOROSCOPIC GUIDANCE, THE TARGET POINT WAS SELECTED AT THE INTERLAMINAR LEVEL OF L5-S1. LIDOCAINE WAS USED TO NUMB THE SKIN AND THE SUBCUTANEOUS TISSUE BELOW IT. EPIDURAL TUOHY NEEDLE, 17-GAUGE, WAS ADVANCED UNDER FLUOROSCOPIC GUIDANCE AND FOLLOWING PATIENT FEEDBACK UNTIL THE EPIDURAL SPACE WAS REACHED, 7 CM DEEP INTO THE SKIN BY THE LOSS OF RESISTANCE TECHNIQUE. ISOVUE M DYE 30%, 0.25 ML, WAS INJECTED SHOWING ADEQUATE SPREAD OF THE DYE. THEN, A SOLUTION OF 3 ML OF NORMAL SALINE WITH DEPO-MEDROL 60 MG WAS INJECTED SLOWLY FOLLOWING PATIENT FEEDBACK. THERE WAS NO EVIDENCE OF BLOOD, PARESTHESIA OR CEREBROSPINAL FLUID DURING THE PROCEDURE. THE PATIENT WAS SENT TO THE RECOVERY ROOM. THE PATIENT WAS MOVING THE EXTREMITIES AND DOING WELL. THERE WAS NO COMPLICATION DURING THE PROCEDURE. FLUOROSCOPY TIME WAS 42 SECONDS. POST PROCEDURE NOTE THE PATIENT WILL BE SEEN IN A FOLLOW UP IN THE NEXT FEW WEEKS. INSTRUCTIONS WERE GIVEN, QUESTIONS WERE ANSWERED, AND THE PATIENT EXPRESSED UNDERSTANDING AND AGREES WITH THE PLAN. I, ARABELLA ASHER, DOCUMENTED THE ABOVE INFORMATION ACTING A SCRIBE FOR DR. TAYLOR. I HAVE REVIEWED THE ABOVE DOCUMENT, WRITTEN BY ARABELLA WHITE AND I VERIFY THAT IT IS ACCURATE DIAGNOSTIC IMAGING [facility] FLUORO GUIDE SPINE INJECTION (PAIN)[id number] PROCEDURE CODES 03726 LUMBAR/SACRAL W/ IMAGING 6045F RADXPS IN END [id number] PXD DISPOSITION & COMMUNICATION FOLLOW UP 3 WEEKS ELECTRONICALLY SIGNED BY EDIL TAYLOR MD ON 08/18/2017 AT 01:10 PM EDT DISCLAIMER : THIS IS A VISIT SUMMARY EXTRACTED FROM THE [employer] CHART. IT IS NOT A COPY OF THE [employer] PROGRESS NOTE. ZAMZAM
== END ==
LOC: M PAIN 08:45
PROVIDERS: ATTEND Anesthesiology
DX: G89.29 Other chronic pain (principal); M51.17 Intervertebral disc disorders with radiculopathy, lumbosacral region; E11.9 Type 2 diabetes mellitus without complications; I10 Essential (primary) hypertension; E78.2 Mixed hyperlipidemia; M79.7 Fibromyalgia; F41.8 Other specified anxiety disorders; J45.20 Mild intermittent asthma, uncomplicated; Z87.891 Personal history of nicotine dependence; Z79.4 Long term (current) use of insulin; Z79.899 Other long term (current) drug therapy; Z88.0 Allergy status to penicillin
CPT/HCPCS: 62323; J1030; Q9967

== ENCOUNTER → 2017-09-22 | Outpatient (CLI) | payer OTHER ==
--- NOTE | 2017-09-29 13:04 | REPMRS ---
Patient History The patient states she has not had a clinical breast exam in over a year. Family history of endometrial cancer in sister at age 40 and breast cancer in paternal aunt. File area calling for out of state priors Digital Mammo Screening Bilat: September 22, 2017 - Exam #: [id number] Bilateral CC and MLO view(s) were taken. Technologist: Cassandra Mae, Technologist FINDINGS: There are scattered fibroglandular densities. There has been no change in the appearance of the mammogram from the prior studies. There is a mild amount of residual fibroglandular tissue which is fairly symmetric. There is no interval development of dominant mass, architectural distortion, or clustered microcalcification suggestive of malignancy. ASSESSMENT: BI-RADS/ACR category 1 mammogram. Negative. Recommendation Routine screening mammogram in 1 year (for women over age 40). This mammogram was interpreted with the aid of an FDA-approved computer-aided dectection system. Electronically Signed By: Farhat Hawkins MD 09/29/17 2083
== END ==
LOC: M RAD 12:11
PROVIDERS: ATTEND Physician Assistant
DX: Z12.31 Encounter for screening mammogram for malignant neoplasm of breast (principal); Z80.3 Family history of malignant neoplasm of breast; Z85.42 Personal history of malignant neoplasm of other parts of uterus

== ENCOUNTER → 2017-09-24 | Outpatient (CLI) | payer OTHER ==
--- NOTE | 2017-10-20 00:41 | ECWPNPC ---
PATIENT NAME: UNIQUE ALBA : 1960 GENDER: FEMALE VISIT DATE: 09/24/2017 DISCHARGE DATE: 09/24/17 1208 VISIT LOCKED DATE TIME: PHYSICIAN: ELLA GOLDMAN RESOURCE: ELLA GOLDMAN REASON FOR APPOINTMENT 1. POST PROC HISTORY OF PRESENT ILLNESS HISTORY OF PRESENT ILLNESS: PAIN THE PATIENT DESCRIBES THE PAIN... FALL RISK SCREENING: SCREENING :NO FALLS IN THE PAST YEAR TODAY'S VISIT: NOTES: RATES PAIN LEVEL TODAY 08/10. IS S/P LESB COMPLETED ON 08/18/17. HAS NOT YET SEEN DR CLARK AT [facility] FOR SURGICAL EVAL. PAIN IS CENTERED IN LOW BACK WITH RADIATING TO LEFT LEG. STATES THIS IS NUMB AND BURNING. CURRENT MEDICATIONS TAKING BUSPIRONE HCL 7.5 MG TABLET 1/2 TABLET BID X 3 DAYS, THEN 1 TAB BID ORALLY TWICE A DAY TAKING PANTOPRAZOLE SODIUM 40 MG TABLET DELAYED RELEASE 1 TABLET ORALLY ONCE A DAY TAKING METOPROLOL TARTRATE 25 MG TABLET 1 TABLET WITH FOOD ORALLY TWICE A DAY TAKING CYMBALTA 60 MG CAPSULE DELAYED RELEASE PARTICLES 1 CAPSULE ORALLY ONCE A DAY TAKING CANE - MISCELLANEOUS DIRECTED _ DAILY ICD10 R26.2 TAKING ONE TOUCH ULTRA SYSTEM KIT _ METER DIRECTED SUBCUTANEOUSLY DIRECTED ICD10 E11.65 TAKING ONE TOUCH ULTRA TEST STRIPS _ STRIPS DIRECTED SUBCUTANEOUSLY FOUR TIMES DAILY ICD10 E11.65 TAKING ONETOUCH LANCETS _ MISCELLANEOUS DIRECTED SUBCUTANEOUSLY FOUR TIMES DAILY NEEDED E11.65 TAKING PEN NEEDLES 3/16" 31G X 5 MM MISCELLANEOUS DIRECTED SUBCUTANEOUSLY FOUR TIMES DAILY ICD10 E11.65 TAKING AMITRIPTYLINE HCL 50 MG TABLET 1 TABLET ORALLY ONCE A DAY TAKING WRIST BRACE/LEFT MEDIUM - MISCELLANEOUS DIRECTED _ DAILY TAKING WRIST BRACE/RIGHT MEDIUM - MISCELLANEOUS DIRECTED _ DAILY ICD10 G56.03 TAKING BACLOFEN 10 MG TABLET 1 TABLET WITH FOOD OR MILK ORALLY THREE TIMES A DAY TAKING ADVAIR DISKUS 250-50 MCG/DOSE AEROSOL POWDER BREATH ACTIVATED 1 PUFF INHALATION TWICE A DAY TAKING FREESTYLE FREEDOM _ GLUCOMETER DIRECTED _ FOUR TIMES DAILY E11.9 TAKING FREESTYLE LITE TEST - STRIP DIRECTED IN VITRO FOUR TIMES DAILY NEEDED ICD10 E11.65 TAKING GABAPENTIN 600 MG TABLET ORALLY THREE TIMES A DAY TAKING FLONASE ALLERGY RELIEF 50 MCG/ACT SUSPENSION 1 SPRAY IN EACH NOSTRIL NASALLY BID TAKING SINGULAIR 10 MG TABLET 1 TABLET IN THE EVENING ORALLY ONCE A DAY TAKING LIPITOR 10 MG TABLET 1 TABLET ORALLY ONCE A DAY TAKING AMLODIPINE 10 MG TABLET ORAL ORALLY ONCE DAILY TAKING ZYRTEC ALLERGY 10 MG TABLET 1 TABLET ORALLY ONCE A DAY TAKING VENTOLIN HFA 108 (90 BASE) MCG/ACT AEROSOL SOLUTION INHALE TWO PUFFS BY MOUTH EVERY 4 HOURS NEEDED TAKING MOBIC 15 MG TABLET 1 TABLET ORALLY ONCE A DAY TAKING TOPIRAMATE 100 MG TABLET TAKE ONE TABLET BY MOUTH AT BEDTIME ORAL TAKING LEVEMIR FLEXPEN 100 UNIT/ML SOLUTION PEN-INJECTOR 40 UNITS SUBCUTANEOUS Q PM TAKING NOVOLOG FLEXPEN 100 UNIT/ML SOLUTION PEN-INJECTOR PER SLIDING SCALE SUBCUTANEOUS DIRECTED NOT-TAKING VALIUM 10 MG TABLET 1 TABLET NEEDED ORALLY TAKE 1 TAB 1 HOUR PRIOR TO TEST, AND 1 TAB ON ARRIVAL MDD=2, NOTES: NONE LATELY MEDICATION LIST REVIEWED AND RECONCILED WITH THE PATIENT PAST MEDICAL HISTORY DIABETES HYPERTENSION ASTHMA FIBROMYALGIA DEPRESSION INSOMNIA BILATERAL CARPAL SLOAN ALLERGIES PENICILLIN (FOR ALLERGIES USE ONLY): HIVES: ALLERGY DOXYCYCLINE: DIZZINESS: SIDE EFFECTS SURGICAL HISTORY HYSTERECTOMY 2004 CERVICAL 2014 KNEE SURGERY 2015 SOCIAL HISTORY GENERAL: TOBACCO USE ARE YOU A:FORMER SMOKER HOW LONG HAS IT BEEN SINCE YOU LAST SMOKED?> 10 YEARS LUNG CANCER SCREENING SMOKING STATUS:FORMER SMOKER IS THE PATIENT BETWEEN THE AGE OF 57 AND 79?NO BMI CARE GOAL FOLLOW-UP ABOVE NORMAL BMI FOLLOW-UPDIETARY MANAGEMENT EDUCATION, GUIDANCE, AND COUNSELING ALCOHOL SCREENING DID YOU HAVE A DRINK CONTAINING ALCOHOL IN THE PAST YEAR?NO POINTS0 INTERPRETATIONNEGATIVE RECREATIONAL DRUG USE DRUG USE?NO CAFFEINE CAFFEINE USE?NO OCCUPATION: UNEMPLOYED. [id number] LEARNING BARRIERS / SPECIAL NEEDS CHANGE FROM LAST VISIT?NO PAIN CLINIC PFS, CLERGY, PUBLIC HEALTH REFERRALS PFS REFERRAL NEEDED?NO CLERGY REFERRAL NEEDED?NO PUBLIC HEALTH REFERRAL NEEDED?NO WAS THE PROVIDER NOTIFIED OF ANY PERTINENT INFO?NO HAS THE PATIENT BEEN EDUCATED REGARDING HIS/HER PLAN OF CARE?YES HAS THE PATIENT BEEN EDUCATED REGARDING PAIN, THE RISK FOR PAIN, THE IMPORTANCE OF EFFECTIVE PAIN MANAGEMENT, AND THE PAIN ASSESSMENT PROCESS?YES PATIENT: ____. ADVANCE DIRECTIVES HEALTH CARE PROXY?NO WOULD YOU LIKE MORE INFORMATION?YES WEARS GLASSES, USES CANE TO WALK. HOSPITALIZATION/MAJOR DIAGNOSTIC PROCEDURE SURGICAL PNEUMONIA 12 YEARS AGO REVIEW OF SYSTEMS REVIEWED BY: PROVIDER: ELLA LAW . CONSTITUTIONAL: ANY CHANGE IN YOUR MEDICAL CONDITION? NO . CHILLS NO . FEVER NO . INFECTION: DO YOU HAVE NEW INFECTIONS? NO . DO YOU HAVE HISTORY OF MRSA? NO . MUSCULOSKELETAL: ANY NEW PATTERNS OF PAIN OR NUMBNESS? NO, PT REPORTS LESI 08/18/17. PRE PROCEDURE PAIN WAS 8-9/10, POST PROCEDURE PAIN WAS 5-6/10 PROCEDURE. PT REPORTS PAIN HAS INCREASED SINCE THEN TO 9/10 TODAY . GASTROENTEROLOGY: ANY NEW CHANGE IN BOWEL CONTROL? NO . GENITOURINARY: ANY NEW CHANGE IN BLADDER CONTROL? NO . IS THERE A CHANCE YOU COULD BE ? NO . HEMATOLOGY/LYMPH: DO YOU TAKE ANY BLOOD THINNERS? (FOR EXAMPLE- COUMADIN, PLAVIX, AGGRENOX, PLATEL, PRADAXA, OR XARELTO) NO . WHEN WAS YOUR LAST DOSE? DATE: TIME: . NEUROLOGY: HAVE YOU FALLEN IN THE PAST 6 MONTHS? YES, PT STATES SHE FELL 07/2017, FROM LOSS OF BALANCE. PT DENIES SEEKING MEDICAL ATTENTION . ANY NEW EXTREMITY NUMBNESS OR WEAKNESS? NO . CARDIOLOGY: DO YOU HAVE A PACEMAKER OR DEFIBRILLATOR? NO . RESPIRATORY: HAVE YOU BEEN SICK IN THE PAST WEEK? NO . FEVER NO . FLU LIKE SYMPTOMS? NO . COUGH NO . INTEGUMENTARY: DO YOU HAVE ANY RASHES OR OPEN SORES? NO . ALLERGIC/IMMUNO: ARE YOU ALLERGIC TO SHELLFISH OR IV DYE? NO . ANY NEW ALLERGIES? NO . PSYCHIATRIC: DO YOU HAVE THOUGHTS OF HURTING YOURSELF OR SOMEONE ELSE? NO . ARE YOU ABUSED, NEGLECTED, OR IN AN UNSAFE ENVIRONMENT? NO . ENDOCRINOLOGY: ARE YOU DIABETIC? YES . OTHER: DO YOU NEED ANY PRESCRIPTIONS? NO . IF YES, PLEASE LIST: ____ . ANY NEW PROBLEMS WITH YOUR MEDICATIONS? NO . WHEN DID YOU LAST EAT? ____ . WHEN DID YOU LAST DRINK? ____ . WHAT DID YOU LAST DRINK? ____ . NAME OF PERSON DRIVING YOU HOME? ____ . DO YOU HAVE ANY OTHER QUESTIONS OR CONCERNS NO, PT DENIES GETTING FLU SHOT THIS SEASON, BUT PLANS TO. DISCUSSED AVOIDING FLU SHOT WITHIN A MONTH OF PROCEDURE WITH US . VITAL SIGNS WT 203.4 LBS, HT 62", BMI 37.20 INDEX, BP 154/92 MM HG, HR 90 /MIN, RR 18 /MIN, TEMP 97.0 F, OXYGEN SAT % 98%, NA INITIALS AW 1118, REVIEWED BY: MARGRET. EXAMINATION GENERAL EXAMINATION: PSYCH ANXIOUS, ALERT , ORIENTED X 3 . LUNGS:CLEAR TO AUSCULTATION BILATERALLY, NO WHEEZES, RALES OR RHONCHI. HEART:HEART RATE REGULAR, NORMAL S1S2. MUSCULOSKELETAL:MUSCLE STRENGTH TESTING 5/5 BILATERAL UPPER AND LOWER EXTREMITIES. POINT TENDERNESS OVER LUMBAR SPINOUS PROCESSES AND BILATERALLY AT THE SACRAL ILIAC JOINTS. POSITIVE RUSS SIGN POSTURE UPRIGHT, GAIT SLOW. CANE USED FOR BALANCE. NEUROLOGIC EXAM:CN'S II-XII GROSSLY INTACT. NO SENSORY DEFICEIT ELICITED. DTR'S 2+ BUE, 3+ BILATERAL LOWER EXTREMITIES.. ASSESSMENTS LUMBAGO WITH SCIATICA, LEFT SIDE - M54.42 (PRIMARY) LUMBAGO WITH SCIATICA, RIGHT SIDE - M54.41 BILATERAL SACROILIITIS - M46.1 TREATMENT LUMBAGO WITH SCIATICA, LEFT SIDE STOP BACLOFEN TABLET, 10 MG, 1 TABLET WITH FOOD OR MILK, ORALLY, THREE TIMES A DAY START TIZANIDINE HCL TABLET, 4 MG, 1 TABLET NEEDED, ORALLY, THREE TIMES A DAY, 30 DAY(S), 90 TABLET, REFILLS 1 START NORCO TABLET, 5-325 MG, 1 TABLET NEEDED, ORALLY, DAILY MAX 1 PER DAY FOR SEVERE PAIN, 30 DAY(S), 20, REFILLS 0 NOTES: WILL CHECK STATUS OF REFERRAL TO DR CLARK. CLINICAL NOTES: DISCUSSED OPTION OF TPI TO SHOULDER AREAS BUT PT DECLINES SHE SAYS THE MEDICATION DOES NOT WORK AND IT MAKES HER GAIN WEIGHT., ISTOP REGISTRY REVIEWED AND DEMNOSTRATES COMPLLIANCE (REF # [id number]). PROCEDURE CODES FA211 ESTABILISHED PATIENT [facility] CHARGE DISPOSITION & COMMUNICATION FOLLOW UP 1 MONTH (REASON: BACK PAIN) ELECTRONICALLY SIGNED BY ZECHARIAH ARAGON ON 10/19/2017 AT 09:50 AM EST DISCLAIMER : THIS IS A VISIT SUMMARY EXTRACTED FROM THE [employer] CHART. IT IS NOT A COPY OF THE [employer] PROGRESS NOTE. ZAMZAM
== END ==
LOC: M PAIN 11:00
PROVIDERS: ATTEND Nurse Practitioner Family
DX: M54.42 Lumbago with sciatica, left side (principal); M54.41 Lumbago with sciatica, right side; M46.1 Sacroiliitis, not elsewhere classified; E11.9 Type 2 diabetes mellitus without complications; I10 Essential (primary) hypertension; J45.909 Unspecified asthma, uncomplicated; F32.9 Major depressive disorder, single episode, unspecified; Z79.4 Long term (current) use of insulin; Z79.899 Other long term (current) drug therapy; Z87.891 Personal history of nicotine dependence; Z88.0 Allergy status to penicillin; Z88.1 Allergy status to other antibiotic agents

== ENCOUNTER 2017-10-16 10:50 | Outpatient (RCR) | payer OTHER | END 2017-10-30 | LOC: M OT 10:50 | PROVIDERS: ATTEND Physician Assistant | DX: Z51.89 Encounter for other specified aftercare (principal); G56.02 Carpal tunnel syndrome, left upper limb; G56.01 Carpal tunnel syndrome, right upper limb ==